=== PATIENT | male | born 1980 | race Caucasian/White ===

== ENCOUNTER 2024-08-06 12:34 | Emergency (ER) | payer OTHER, BC ==
[~2024-08-06] VITALS: Ht 10 cm; Wt 88.6 kg
[2024-08-06 14:01] VITALS: BP 124/68
== END 2024-08-06 14:04 | disposition home or self-care (01) ==
LOC: ED 12:34
DX: S69.91XA Unspecified injury of right wrist, hand and finger(s), initial encounter (principal); V48.9XXA Unspecified car occupant injured in noncollision transport accident in traffic accident, initial encounter; Y92.481 Parking lot as the place of occurrence of the external cause